=== PATIENT | male | born 1980 | race African-American/Black ===

== ENCOUNTER 2018-12-29 17:00 | Emergency (ER) | payer BC, MEDICARE ==
[~2018-12-29] VITALS: Ht 182.9 cm; Wt 89.8 kg
[2018-12-29 17:09] VITALS: BP 148/102
== END 2018-12-29 19:38 | disposition left against medical advice (07) ==
LOC: ER 17:00
DX: M25.512 Pain in left shoulder (principal); R07.89 Other chest pain; Z53.21 Procedure and treatment not carried out due to patient leaving prior to being seen by health care provider
CPT/HCPCS: 93005

== ENCOUNTER 2019-12-22 07:20 | Inpatient (IN) | payer BC, MEDICARE, OTHER ==
[2019-12-22] VITALS (15 sets, daily range): BP systolic 192–225; BP diastolic 82–129
[~2019-12-22] VITALS: Ht 185.4 cm; Wt 94.3 kg
[2019-12-22] MEDS ORDERED: ONDANSETRON HCL 4 MG/2 ML VIAL IV ONE (08:30)
[2019-12-22] MEDS ORDERED: SODIUM CHLORIDE 0.9% 1,000 ML IV ONE ×2 (08:30→09:15)
[2019-12-22] MEDS ORDERED: HYDROmorphone HCL 2 MG/ML VL IV ONE (08:30)
[2019-12-22 09:09] LABS: Basophils # (auto) 0 10 ^3/uL (0-0.2); Basophils % (auto) 0.4 % (0.0-2.0); Eosinophils # (auto) 0 10 ^3/uL (0-0.8); Hematocrit 13.2 % (41.0-53.0); Mean Corpuscular Hgb Conc. 34.4 g/dL (32.0-36.0); Monocytes # (auto) 0.4 10 ^3/uL (0-1.3); Nucleated Red Blood Cells % 0.1 %
[2019-12-22 09:11] LABS: Eosinophils % (auto) 0.5 % (0.0-7.0); Lymphocytes % (auto) 15.5 % (10.0-50.0); Mean Corpuscular Hemoglobin 32.5 pg (28.0-32.0); Mean Corpuscular Volume 94.5 fL (80.0-100.0); Monocytes % (auto) 6.3 % (0.0-12.0); Neutrophils # (auto) 4.8 10 ^3/uL (1.6-8.6); Neutrophils % (auto) 77.3 % (37.0-80.0); Platelet Count (auto) 256 10^3/uL (140-450); Red Cell Distribution Width 17.9 % (11.8-14.3); White Blood Cell 6.2 10^3/uL (4.4-10.8)
[2019-12-22 09:14] LABS: Hemoglobin 4.5 g/dL (13.5-17.5)
[2019-12-22 09:23] LABS: Calcium 8.6 mg/dL (8.5-10.1); Magnesium 2.3 mg/dL (1.6-2.6); Potassium 5.2 mmol/L (3.5-5.1)
[2019-12-22 09:38] LABS: BUN/Creatinine Ratio 5.2; Bilirubin, Total 0.6 mg/dL (0.2-1.0); Total Protein 6.4 g/dL (6.4-8.2)
[2019-12-22] MEDS ORDERED: hydrALAZINE HCL 20 MG/ML VL IV ONE (11:30)
[2019-12-22] MEDS ORDERED: LABETALOL HCL 5 MG/ML 4ML SYRINGE IV ONE (11:30)
[2019-12-22] MEDS ORDERED: ACETAMINOPHEN 500 MG TAB PO ONE (11:30)
[2019-12-22] MEDS ORDERED: MORPHINE SULF INJ 2 MG/ML SYRINGE 1ML IV PRN (12:00)
[2019-12-22] MEDS ORDERED: ACETAMINOPHEN 500 MG TAB PO PRN (12:00)
[2019-12-22] MEDS ORDERED: NITROGLYCERIN 0.4 MG SL TAB SL PRN (12:00)
[2019-12-22] MEDS: MORPHINE SULF INJ 2 MG/ML SYRINGE 1ML IV PRN ×4 (12:29→23:23)
[2019-12-22] MEDS: ONDANSETRON HCL 4 MG/2 ML VIAL IV PRN ×2 (12:30→13:09)
[2019-12-22] MEDS: HYDROcodone-ACET 5/325MG TAB PO PRN ×2 (13:30→21:24)
[2019-12-22 15:40] LABS: INR 1.06 (0.9-1.15)
[2019-12-22] MEDS ORDERED: SODIUM CHL 0.9% 1000 ML BAG XX ONE (15:45)
[2019-12-22 16:14] LABS: Hematocrit 18.1 % (41.0-53.0)
[2019-12-22 16:28] LABS: Hemoglobin 6.1 g/dL (13.5-17.5)
[2019-12-22] MEDS ORDERED: EPOETIN ALFA 10,000 UNIT/1 ML VIAL SC ONE (21:00)
[2019-12-22] MEDS ORDERED: EPOETIN ALFA 10,000 UNIT/1 ML VIAL ONE (21:13)
[2019-12-22] MEDS: PANTOPRAZOLE 40 MG/10 ML VIAL INJ IV SCH (21:24)
[2019-12-22] MEDS: hydrALAZINE HCL 25 MG TAB PO PRN (21:25)
[2019-12-22] MEDS: CARVEDILOL 3.125 MG TAB PO SCH (21:32)
[2019-12-23] MEDS: MORPHINE SULF INJ 2 MG/ML SYRINGE 1ML IV PRN ×2 (03:00→08:11)
[2019-12-23] MEDS ORDERED: hydrALAZINE HCL 20 MG/ML VL IV ONE (04:45)
[2019-12-23] MEDS: CARVEDILOL 3.125 MG TAB PO SCH (08:11)
[2019-12-23 09:13] LABS: Hemoglobin 7.2 g/dL (13.5-17.5); Mean Corpuscular Volume 90.4 fL (80.0-100.0)
[2019-12-23 09:15] LABS: Hematocrit 21.6 % (41.0-53.0); Mean Corpuscular Hemoglobin 30.3 pg (28.0-32.0); Mean Corpuscular Hgb Conc. 33.5 g/dL (32.0-36.0); Platelet Count (auto) 231 10^3/uL (140-450); Red Blood Cells 2.38 10^6/uL (4.5-5.90); White Blood Cell 6.3 10^3/uL (4.4-10.8)
[2019-12-23 09:16] LABS: Albumin 2.8 g/dL (3.4-5.0); Calcium 8.8 mg/dL (8.5-10.1); Potassium 4.9 mmol/L (3.5-5.1)
[2019-12-23 09:17] LABS: Basophils % (manual) 0 (0.0-2.0); Blast Cells 0; Metamyelocytes % 0; Myelocytes % 0; Promyelocytes % 0; Reactive Lymphocytes 0
[2019-12-23 09:20] LABS: BUN/Creatinine Ratio 3.7; Bilirubin, Total 0.7 mg/dL (0.2-1.0); Total Protein 6.4 g/dL (6.4-8.2)
[2019-12-23 09:32] LABS: Band Neutrophils % (manual) 1; Eosinophils % (manual) 1 (0-7); Lymphocytes % (manual) 17 (10.0-50.0); Monocytes % (manual) 2 (0-12)
[2019-12-23] MEDS: PANTOPRAZOLE 40 MG/10 ML VIAL INJ IV SCH ×2 (10:00→22:00)
[2019-12-23] MEDS: hydrALAZINE HCL 25 MG TAB PO PRN (10:01)
[2019-12-23] MEDS ORDERED: CARVEDILOL 12.5 MG TAB PO ONE (11:30)
[2019-12-23] MEDS: HYDROmorphone HCL 2 MG/ML VL IV PRN ×3 (12:18→20:33)
[2019-12-23] MEDS: cloNIDine HCL 0.1 MG TAB PO PRN (12:18)
[2019-12-23] MEDS: hydrALAZINE HCL 25 MG TAB PO SCH ×3 (12:23→22:50)
[2019-12-23 14:30] VITALS: BP 154/82
[2019-12-23 15:15] LABS: INR 1.07 (0.9-1.15); Partial Thromboplastin Time 27.5 sec (23.64-32.05)
[2019-12-23] MEDS ORDERED: CARV12.544 PO (15:57)
[2019-12-23] MEDS ORDERED: CLO01T PO (15:57)
[2019-12-23] MEDS ORDERED: HYDR50TA15 PO (15:57)
[2019-12-23] MEDS ORDERED: CINA30TA2 PO (15:57)
[2019-12-23] MEDS: CARVEDILOL 12.5 MG TAB PO SCH (18:03)
[2019-12-23 20:00] VITALS: BP 140/86
[2019-12-23 22:00] VITALS: BP 120/72
[2019-12-24] VITALS (8 sets, daily range): BP systolic 139–183; BP diastolic 78–100
[2019-12-24] MEDS: HYDROmorphone HCL 2 MG/ML VL IV PRN ×4 (02:37→20:14)
[2019-12-24] MEDS: hydrALAZINE HCL 25 MG TAB PO SCH ×4 (05:39→22:18)
[2019-12-24] MEDS: diphenhdrAMINE HCL 50 MG/1 ML VL IV PRN (05:40)
[2019-12-24] MEDS: cloNIDine HCL 0.1 MG TAB PO PRN ×2 (05:42→22:27)
[2019-12-24 06:21] LABS: Basophils # (auto) 0 10 ^3/uL (0-0.2); Basophils % (auto) 0.2 % (0.0-2.0); Eosinophils # (auto) 0.1 10 ^3/uL (0-0.8); Mean Corpuscular Volume 93.4 fL (80.0-100.0); Red Blood Cells 2.08 10^6/uL (4.5-5.90); White Blood Cell 6.2 10^3/uL (4.4-10.8)
[2019-12-24 06:24] LABS: Eosinophils % (auto) 0.9 % (0.0-7.0); Hematocrit 19.5 % (41.0-53.0); Lymphocytes # (auto) 1.1 10 ^3/uL (0.4-5.4); Lymphocytes % (auto) 17.4 % (10.0-50.0); Mean Corpuscular Hemoglobin 33.3 pg (28.0-32.0); Mean Corpuscular Hgb Conc. 35.7 g/dL (32.0-36.0); Monocytes # (auto) 0.4 10 ^3/uL (0-1.3); Monocytes % (auto) 7.1 % (0.0-12.0); Neutrophils # (auto) 4.6 10 ^3/uL (1.6-8.6); Neutrophils % (auto) 74.4 % (37.0-80.0); Platelet Count (auto) 182 10^3/uL (140-450); Red Cell Distribution Width 15.6 % (11.8-14.3)
[2019-12-24 06:27] LABS: Hemoglobin 6.9 g/dL (13.5-17.5)
[2019-12-24 06:36] LABS: Calcium 8.8 mg/dL (8.5-10.1); Potassium 5.1 mmol/L (3.5-5.1)
[2019-12-24 06:38] LABS: BUN/Creatinine Ratio 3.4
[2019-12-24] MEDS ORDERED: SODIUM CHL 0.9% 1000 ML BAG XX ONE (07:00)
[2019-12-24] MEDS: CARVEDILOL 12.5 MG TAB PO SCH ×2 (08:00→19:25)
[2019-12-24] MEDS: amLODIPine BESYLATE 5 MG TAB PO SCH (10:00)
[2019-12-24] MEDS: PANTOPRAZOLE 40 MG/10 ML VIAL INJ IV SCH ×2 (10:05→22:15)
[2019-12-24] MEDS ORDERED: EPOETIN ALFA 10,000 UNIT/1 ML VIAL SC ONE (21:00)
[2019-12-25] VITALS (7 sets, daily range): BP systolic 140–183; BP diastolic 77–95
[2019-12-25] MEDS: hydrALAZINE HCL 20 MG/ML VL IV PRN (00:14)
[2019-12-25] MEDS: HYDROmorphone HCL 2 MG/ML VL IV PRN ×5 (00:14→20:08)
[2019-12-25 05:17] LABS: Basophils # (auto) 0 10 ^3/uL (0-0.2); Basophils % (auto) 0.2 % (0.0-2.0); Eosinophils # (auto) 0.1 10 ^3/uL (0-0.8); Hemoglobin 7.2 g/dL (13.5-17.5); Lymphocytes # (auto) 0.9 10 ^3/uL (0.4-5.4); Monocytes # (auto) 0.5 10 ^3/uL (0-1.3); Red Cell Distribution Width 15.7 % (11.8-14.3)
[2019-12-25 05:19] LABS: Eosinophils % (auto) 1.3 % (0.0-7.0); Hematocrit 20.7 % (41.0-53.0); Lymphocytes % (auto) 16.8 % (10.0-50.0); Mean Corpuscular Hemoglobin 32.6 pg (28.0-32.0); Mean Corpuscular Hgb Conc. 34.9 g/dL (32.0-36.0); Mean Corpuscular Volume 93.5 fL (80.0-100.0); Monocytes % (auto) 8.6 % (0.0-12.0); Neutrophils # (auto) 4.1 10 ^3/uL (1.6-8.6); Neutrophils % (auto) 73.1 % (37.0-80.0); Nucleated Red Blood Cells % 0.1 %; Platelet Count (auto) 142 10^3/uL (140-450); Red Blood Cells 2.22 10^6/uL (4.5-5.90); White Blood Cell 5.6 10^3/uL (4.4-10.8)
[2019-12-25] MEDS: diphenhdrAMINE HCL 50 MG/1 ML VL IV PRN (05:32)
[2019-12-25] MEDS: hydrALAZINE HCL 25 MG TAB PO SCH ×4 (05:33→22:00)
[2019-12-25 05:34] LABS: BUN/Creatinine Ratio 3.5; Calcium 8.7 mg/dL (8.5-10.1); Potassium 4.6 mmol/L (3.5-5.1)
[2019-12-25] MEDS: amLODIPine BESYLATE 5 MG TAB PO SCH (10:06)
[2019-12-25] MEDS: CARVEDILOL 12.5 MG TAB PO SCH ×2 (10:07→17:44)
[2019-12-25] MEDS: PANTOPRAZOLE 40 MG/10 ML VIAL INJ IV SCH ×2 (10:08→21:58)
[2019-12-25] MEDS ORDERED: LACTULOSE 20Gm/30ML SOLN PO PRN (11:30)
[2019-12-25 14:31] LABS: Hematocrit 21.5 % (41.0-53.0); Hemoglobin 7.6 g/dL (13.5-17.5)
[2019-12-26] MEDS: HYDROmorphone HCL 2 MG/ML VL IV PRN ×5 (03:03→22:15)
[2019-12-26] MEDS: diphenhdrAMINE HCL 50 MG/1 ML VL IV PRN ×5 (03:17→22:15)
[2019-12-26 05:48] VITALS: BP 174/106
[2019-12-26] MEDS: cloNIDine HCL 0.1 MG TAB PO PRN ×2 (05:52→21:41)
[2019-12-26] MEDS: hydrALAZINE HCL 25 MG TAB PO SCH ×4 (05:52→21:41)
[2019-12-26] MEDS: CARVEDILOL 12.5 MG TAB PO SCH ×2 (08:54→17:20)
[2019-12-26] MEDS: amLODIPine BESYLATE 5 MG TAB PO SCH (08:55)
[2019-12-26] MEDS: PANTOPRAZOLE 40 MG/10 ML VIAL INJ IV SCH ×2 (08:55→22:12)
[2019-12-26 09:00] VITALS: BP_SYST 153
[2019-12-26 11:35] LABS: BUN/Creatinine Ratio 4.1; Calcium 8.9 mg/dL (8.5-10.1); Potassium 4.4 mmol/L (3.5-5.1)
[2019-12-26 11:39] LABS: Basophils # (auto) 0 10 ^3/uL (0-0.2); Eosinophils # (auto) 0.1 10 ^3/uL (0-0.8); Monocytes # (auto) 0.4 10 ^3/uL (0-1.3); Nucleated Red Blood Cells % 0.1 %; White Blood Cell 5.2 10^3/uL (4.4-10.8)
[2019-12-26 11:43] LABS: Basophils % (auto) 0.1 % (0.0-2.0); Eosinophils % (auto) 1.6 % (0.0-7.0); Hematocrit 20.8 % (41.0-53.0); Hemoglobin 7.2 g/dL (13.5-17.5); Lymphocytes % (auto) 19.6 % (10.0-50.0); Mean Corpuscular Hemoglobin 31.9 pg (28.0-32.0); Mean Corpuscular Hgb Conc. 34.8 g/dL (32.0-36.0); Mean Corpuscular Volume 91.5 fL (80.0-100.0); Monocytes % (auto) 7.9 % (0.0-12.0); Neutrophils # (auto) 3.7 10 ^3/uL (1.6-8.6); Neutrophils % (auto) 70.8 % (37.0-80.0); Platelet Count (auto) 135 10^3/uL (140-450); Red Blood Cells 2.27 10^6/uL (4.5-5.90); Red Cell Distribution Width 15.5 % (11.8-14.3)
[2019-12-26 13:00] VITALS: BP 159/91
[2019-12-26] MEDS: hydrALAZINE HCL 20 MG/ML VL IV PRN ×2 (14:40→23:14)
[2019-12-26 17:00] VITALS: BP 154/79
[2019-12-26 22:00] VITALS: BP 160/90
[2019-12-27] VITALS (7 sets, daily range): BP systolic 151–166; BP diastolic 75–101
[2019-12-27] MEDS: HYDROmorphone HCL 2 MG/ML VL IV PRN ×3 (03:56→14:01)
[2019-12-27] MEDS: diphenhdrAMINE HCL 50 MG/1 ML VL IV PRN ×3 (03:59→14:26)
[2019-12-27 05:01] LABS: Basophils # (auto) 0 10 ^3/uL (0-0.2); Basophils % (auto) 0.4 % (0.0-2.0); Eosinophils # (auto) 0.1 10 ^3/uL (0-0.8); Eosinophils % (auto) 2.2 % (0.0-7.0); Hemoglobin 7.2 g/dL (13.5-17.5); Lymphocytes # (auto) 0.8 10 ^3/uL (0.4-5.4); Lymphocytes % (auto) 15.6 % (10.0-50.0); Mean Corpuscular Hemoglobin 33.7 pg (28.0-32.0); Mean Corpuscular Hgb Conc. 35.8 g/dL (32.0-36.0); Mean Corpuscular Volume 94.1 fL (80.0-100.0); Monocytes # (auto) 0.4 10 ^3/uL (0-1.3); Monocytes % (auto) 9.3 % (0.0-12.0); Neutrophils # (auto) 3.5 10 ^3/uL (1.6-8.6); Neutrophils % (auto) 72.5 % (37.0-80.0); Platelet Count (auto) 159 10^3/uL (140-450); Red Blood Cells 2.13 10^6/uL (4.5-5.90); Red Cell Distribution Width 15.3 % (11.8-14.3); White Blood Cell 4.8 10^3/uL (4.4-10.8)
[2019-12-27] MEDS: hydrALAZINE HCL 25 MG TAB PO SCH ×2 (05:25→12:06)
[2019-12-27 05:35] LABS: BUN/Creatinine Ratio 4.1; Calcium 8.8 mg/dL (8.5-10.1); Potassium 5.5 mmol/L (3.5-5.1)
[2019-12-27] MEDS ORDERED: SODIUM CHL 0.9% 1000 ML BAG XX ONE (07:00)
[2019-12-27] MEDS: CARVEDILOL 12.5 MG TAB PO SCH (07:52)
[2019-12-27] MEDS ORDERED: SODIUM CHLORIDE LOCK 10 ML ONE (08:33)
[2019-12-27] MEDS ORDERED: LIDOCAINE VISCOUS 2% 15ML UD ONE (08:33)
[2019-12-27] MEDS ORDERED: diphenhdrAMINE HCL 50 MG/1 ML VL ONE (08:34)
[2019-12-27] MEDS: hydrALAZINE HCL 20 MG/ML VL IV PRN (08:45)
[2019-12-27 09:52] LABS: INR 1.06 (0.9-1.15); Partial Thromboplastin Time 37.8 sec (23.64-32.05)
[2019-12-27] MEDS: PANTOPRAZOLE 40 MG/10 ML VIAL INJ IV SCH (10:00)
[2019-12-27] MEDS: amLODIPine BESYLATE 5 MG TAB PO SCH (10:00)
[2019-12-27] MEDS ORDERED: CARVEDILOL 12.5 MG TAB PO ONE (10:30)
[2019-12-27] MEDS: MIDAZOLAM HCL 5 MG/ML-1ML VIAL ONE ×2 (12:24→12:27)
[2019-12-27] MEDS: fentaNYL CITRATE 100 MCG/2 ML VL ONE ×2 (12:24→12:27)
[2019-12-27] MEDS ORDERED: CARVEDILOL 12.5 MG TAB PO SCH (18:00)
[2019-12-27] MEDS ORDERED: EPOETIN ALFA 10,000 UNIT/1 ML VIAL SC ONE (21:00)
[2019-12-27] MEDS ORDERED: PANTOPRAZOLE 40 MG TAB PO SCH (22:00)
== END 2019-12-27 16:30 | disposition home or self-care (01) | DRG 377 ==
LOC: EDBD 07:20 → ER 07:20 → OVERFLOW 07:21 → TELE-CENTR 12-23 14:10
PROVIDERS: ADMIT Nurse Practitioner Acute Care; ATTEND Internal Medicine Geriatric Medicine
PROC: 30233N1 Transfusion of Nonautologous Red Blood Cells into Peripheral Vein, Percutaneous Approach (ICD-10-PCS; principal; 2019-12-22)
PROC: 5A1D70Z Performance of Urinary Filtration, Intermittent, Less than 6 Hours Per Day (ICD-10-PCS; 2019-12-22)
PROC: 0PSHXZZ Reposition Right Radius, External Approach (ICD-10-PCS; 2019-12-23)
PROC: 5A1D70Z Performance of Urinary Filtration, Intermittent, Less than 6 Hours Per Day (ICD-10-PCS; 2019-12-24)
PROC: 0DJ08ZZ Inspection of Upper Intestinal Tract, Via Natural or Artificial Opening Endoscopic (ICD-10-PCS; 2019-12-27)
DX: K29.71 Gastritis, unspecified, with bleeding (principal); N18.6 End stage renal disease; S52.501A Unspecified fracture of the lower end of right radius, initial encounter for closed fracture; I16.9 Hypertensive crisis, unspecified; E44.0 Moderate protein-calorie malnutrition; N25.81 Secondary hyperparathyroidism of renal origin; D62 Acute posthemorrhagic anemia; I12.0 Hypertensive chronic kidney disease with stage 5 chronic kidney disease or end stage renal disease; S52.201A Unspecified fracture of shaft of right ulna, initial encounter for closed fracture; W01.0XXA Fall on same level from slipping, tripping and stumbling without subsequent striking against object, initial encounter; E87.5 Hyperkalemia; E66.9 Obesity, unspecified; D63.1 Anemia in chronic kidney disease; I16.0 Hypertensive urgency; Z87.11 Personal history of peptic ulcer disease; Y93.89 Activity, other specified; Y92.89 Other specified places as the place of occurrence of the external cause; Y99.8 Other external cause status; Z79.899 Other long term (current) drug therapy; Z68.27 Body mass index [BMI] 27.0-27.9, adult; Z99.2 Dependence on renal dialysis
CPT/HCPCS: 36415; 36430; 43235; 71045; 73080; 73100; 80048; 80053; 83735; 85007; 85014; 85018; 85025; 85027; 85610; 85730; 86850; 86900; 86901; 86920; 90935; 93971; 96361; 96374; 96375; C9113; G0378; J0885; J2250; J2405; J3490

== ENCOUNTER 2020-07-10 07:43 | Inpatient (IN) | payer OTHER ==
[~2020-07-10] VITALS: Ht 182.9 cm; Wt 95.0 kg
[~2020-07-10 07:43] MED LIST: CARV12.544 PO; CINA30TA2 PO; CLO01T PO; HYDR50TA15 PO
[2020-07-10 08:30] LABS: Basophils # (auto) 0 10 ^3/uL (0-0.2); Basophils % (auto) 0.4 % (0.0-2.0); Eosinophils # (auto) 0 10 ^3/uL (0-0.8); Lymphocytes # (auto) 0.4 10 ^3/uL (0.4-5.4); Lymphocytes % (auto) 15.2 % (10.0-50.0); Monocytes # (auto) 0.2 10 ^3/uL (0-1.3); White Blood Cell 2.8 10^3/uL (4.4-10.8)
[2020-07-10 08:32] LABS: Eosinophils % (auto) 0.4 % (0.0-7.0); Hematocrit 15.8 % (41.0-53.0); Mean Corpuscular Hgb Conc. 36.2 g/dL (32.0-36.0); Monocytes % (auto) 7.1 % (0.0-12.0); Neutrophils # (auto) 2.1 10 ^3/uL (1.6-8.6); Neutrophils % (auto) 76.9 % (37.0-80.0); Platelet Count (auto) 129 10^3/uL (140-450); Red Blood Cells 1.68 10^6/uL (4.5-5.90); Red Cell Distribution Width 16.7 % (11.8-14.3)
[2020-07-10 08:47] LABS: Albumin 2.8 g/dL (3.4-5.0); Calcium 7.7 mg/dL (8.5-10.1); Potassium 4.2 mmol/L (3.5-5.1)
[2020-07-10 08:49] LABS: Hemoglobin 5.7 g/dL (13.5-17.5)
[2020-07-10 09:03] LABS: BUN/Creatinine Ratio 3.8; Bilirubin, Total 0.7 mg/dL (0.2-1.0); Total Protein 6.7 g/dL (6.4-8.2)
[2020-07-10] MEDS ORDERED: DOXYCYCLINE 100MG/250ML 250 ML IV ONE (10:00)
[2020-07-10] MEDS ORDERED: DexAMETHasone SOD PHOS 10MG/1ML VIAL INJ IV ONE ×2 (10:00→11:30)
[2020-07-10] MEDS ORDERED: HYDROcodone-ACET 5/325MG TAB PO PRN (11:15)
[2020-07-10] MEDS ORDERED: MORPHINE SULF INJ 2 MG/ML SYRINGE 1ML IV PRN ×2 (11:15)
[2020-07-10] MEDS ORDERED: NITROGLYCERIN 0.4 MG SL TAB SL PRN (11:15)
[2020-07-10] MEDS ORDERED: ONDANSETRON HCL 4 MG/2 ML VIAL IV PRN (11:15)
[2020-07-10] MEDS ORDERED: ACETAMINOPHEN 500 MG TAB PO PRN (11:15)
[2020-07-10] MEDS ORDERED: ASCORBIC ACID 1,000 MG TAB PO ONE (11:30)
[2020-07-10] MEDS ORDERED: DOXYCYCLINE 100 MG TAB/CAP PO ONE (11:30)
[2020-07-10] MEDS ORDERED: CHOLECALCIFEROL (VITD3) 2,000 UNIT CAP PO ONE (11:30)
[2020-07-10] MEDS ORDERED: PANTOPRAZOLE 40 MG TAB PO ONE (11:30)
[2020-07-10] MEDS ORDERED: ZINC SULFATE 220mg CAP or TAB PO ONE (11:30)
[2020-07-10] MEDS ORDERED: CARVEDILOL 12.5 MG TAB PO ONE (11:30)
[2020-07-10] MEDS ORDERED: LORA-622 PO (12:07)
[2020-07-10] MEDS ORDERED: NIFE1TAB31 PO (12:07)
[2020-07-10] MEDS ORDERED: MIN25T PO (12:07)
[2020-07-10] MEDS ORDERED: CARV25TA55 PO (12:24)
[2020-07-10 12:34] LABS: CRP High Sensitivity 12.5 mg/dL (< 0.3)
[2020-07-10] MEDS ORDERED: diphenhdrAMINE HCL 50 MG/1 ML VL IV ONE (15:30)
[2020-07-10 15:44] VITALS: BP 136/89
[2020-07-10 16:27] VITALS: BP 142/92
[2020-07-10] MEDS ORDERED: BUMETANIDE 2.5mg/10ml (0.25 mg/ml) INJ IV ONE (17:30)
[2020-07-10 20:10] VITALS: BP 136/81
[2020-07-10 21:23] VITALS: BP 136/81
[2020-07-10] MEDS: CARVEDILOL 12.5 MG TAB PO SCH (21:25)
[2020-07-10] MEDS: DOXYCYCLINE 100 MG TAB/CAP PO SCH (21:26)
[2020-07-10] MEDS: CINACALCET HYDROCHLORIDE 30 MG TAB PO SCH (21:30)
--- NOTE | 2020-07-10 23:28 | NUR ---
Telemetry admit from [facility]SMANK[facility] admitted to Telemetry unit. Patient oriented to Betty Smith RN primary RN, unit, room, bed, and unit policies regarding patient care and visiting hours. Patient now on continuous telemetry monitoring, tele box #6. Patient placed on bedside oxygen at 3 liters, weighed by bedscale and encouraged to call if they need something. All questions and concerns addressed, patient verbalized understanding. Bed is in lowest locked position with bed rails up x2 and call light is within reach of the patient. Addendum: 07/10/20 at 2330 by Betty Smith RN RN Time meant for 2005
[2020-07-11 05:00] VITALS: BP 139/87
--- NOTE | 2020-07-11 06:59 | NUR ---
Respiratory note: POX CHECK, PT WAS AWAKE AND ALERT, NO RESP DISTRESS NOTED. HR 89, RR 16, SPO2 98% ON ROOM AIR.
--- NOTE | 2020-07-11 07:30 | NUR ---
Opening Shift Note Assumed care of patient, awake and alert. No S/S of distress/SOB or pain. Instructed on POC and to call for assist PRN. Instructed on IS use and provided patient with one at bedside he verbalized understanding and returned demo. Teaching regarding constant proning given at this time as well he verbalized understanding. Pt currently on room air and sats 98%, denies sob on exertion. Patient states anuria for "10 yrs" and unable to collect urine specimen as ordered. Cup at bedside in case. Will continue to monitor for changes Q1hr and PRN.
[2020-07-11 08:41] VITALS: BP 124/82
[2020-07-11] MEDS: DexAMETHasone SOD PHOS 10MG/1ML VIAL INJ IV SCH (10:46)
[2020-07-11] MEDS: DOXYCYCLINE 100 MG TAB/CAP PO SCH ×2 (10:46→22:01)
[2020-07-11] MEDS: PANTOPRAZOLE 40 MG TAB PO SCH (10:46)
[2020-07-11] MEDS: ZINC SULFATE 220mg CAP or TAB PO SCH (10:46)
[2020-07-11] MEDS: CHOLECALCIFEROL (VITD3) 2,000 UNIT CAP PO SCH (10:47)
[2020-07-11] MEDS: ASCORBIC ACID 1,000 MG TAB PO SCH (10:47)
[2020-07-11] MEDS: CARVEDILOL 12.5 MG TAB PO SCH ×2 (10:48→22:01)
[2020-07-11 11:06] LABS: Albumin 2.6 g/dL (3.4-5.0); Calcium 6.4 mg/dL (8.5-10.1); Potassium 3.4 mmol/L (3.5-5.1)
[2020-07-11 11:11] LABS: BUN/Creatinine Ratio 3.9; Bilirubin, Total 0.5 mg/dL (0.2-1.0); Total Protein 6.4 g/dL (6.4-8.2)
[2020-07-11 11:13] LABS: Basophils # (auto) 0 10 ^3/uL (0-0.2); Basophils % (auto) 0.1 % (0.0-2.0); Eosinophils # (auto) 0 10 ^3/uL (0-0.8); Hematocrit 15.8 % (41.0-53.0); Lymphocytes # (auto) 0.4 10 ^3/uL (0.4-5.4); Lymphocytes % (auto) 16.8 % (10.0-50.0); Mean Corpuscular Hemoglobin 42.5 pg (28.0-32.0); Mean Corpuscular Volume 102.7 fL (80.0-100.0); Monocytes # (auto) 0.2 10 ^3/uL (0-1.3); Monocytes % (auto) 7.9 % (0.0-12.0); Neutrophils # (auto) 1.9 10 ^3/uL (1.6-8.6); Neutrophils % (auto) 75.2 % (37.0-80.0); Nucleated Red Blood Cells % 0.1 %; Platelet Count (auto) 132 10^3/uL (140-450); Red Blood Cells 1.54 10^6/uL (4.5-5.90); Red Cell Distribution Width 15.1 % (11.8-14.3); White Blood Cell 2.5 10^3/uL (4.4-10.8)
[2020-07-11 11:19] LABS: Mean Corpuscular Hgb Conc. 41.3 g/dL (32.0-36.0)
[2020-07-11 11:21] LABS: Hemoglobin 6.5 g/dL (13.5-17.5)
--- NOTE | 2020-07-11 11:34 | NUR ---
Critical hgb 6.5 per Clarita in lab. MD Rowley paged to notify left voicemail with answering service. Patient denies any active bleeding, no s/s of distress or sob noted. Patient on room air sat 98%. Cont care
--- NOTE | 2020-07-11 12:01 | NUR ---
MD Rowley at bedside aware of patient's status including critical hgb. states he will speak to Trauma Surgeon regarding possible unit of blood today or wait until tomorrow to transfuse with dialysis as pt is asymptomatic, no s/s of active bleeding noted, no sob or distress noted. Patient on room air sat 99%. No new orders received at this time. Cont to monitor
[2020-07-11 13:02] VITALS: BP 134/88
[2020-07-11 17:00] VITALS: BP 141/90
--- NOTE | 2020-07-11 19:00 | NUR ---
Patient care endorsed endorsed care to Milana rn. Patient sitting comfortably in bed on room air no acute distress or sob noted. Call light within reach
--- NOTE | 2020-07-11 19:30 | NUR ---
OPENING NOTE Received report from day shift RN. Patient is A&O X's 4 with no s/s of distress. Patient is on RA and continuous pulse ox. O2 is around 95% at this time. Educated patient on POC and to use call light when in need of any assistance. Patient verbalized understanding. Patient to have dialysis tomorrow. Fistula to left forearm + bruit/palpation. Bed is in lowest/locked position with side rails up X's 2 and call light is within reach of patient. Will continue care.
[2020-07-11] MEDS: CINACALCET HYDROCHLORIDE 30 MG TAB PO SCH (22:00)
[2020-07-11 22:07] VITALS: BP 144/90
[2020-07-12] VITALS (8 sets, daily range): BP systolic 147–169; BP diastolic 91–107
[2020-07-12] MEDS ORDERED: diphenhdrAMINE HCL 50 MG/1 ML VL IV ONE ×2 (06:30→06:45)
--- NOTE | 2020-07-12 06:31 | NUR ---
new orders for benadryl before patient gets dialysis. read back and verified. Will continue care.
[2020-07-12] MEDS ORDERED: SODIUM CHL 0.9% 1000 ML BAG XX ONE (07:00)
--- NOTE | 2020-07-12 07:04 | NUR ---
ASSOCIATE PROFESSOR OF MANAGEMENT AT BEDSIDE.
[2020-07-12 07:15] LABS: Basophils # (auto) 0 10 ^3/uL (0-0.2); Eosinophils # (auto) 0 10 ^3/uL (0-0.8); Lymphocytes # (auto) 0.6 10 ^3/uL (0.4-5.4); Monocytes # (auto) 0.3 10 ^3/uL (0-1.3); Neutrophils # (auto) 2.7 10 ^3/uL (1.6-8.6); White Blood Cell 3.6 10^3/uL (4.4-10.8)
[2020-07-12 07:19] LABS: Basophils % (auto) 0.3 % (0.0-2.0); Eosinophils % (auto) 0.1 % (0.0-7.0); Hematocrit 12.1 % (41.0-53.0); Lymphocytes % (auto) 17.7 % (10.0-50.0); Mean Corpuscular Hemoglobin 54.6 pg (28.0-32.0); Neutrophils % (auto) 74.9 % (37.0-80.0); Platelet Count (auto) 156 10^3/uL (140-450); Red Blood Cells 1.12 10^6/uL (4.5-5.90); Red Cell Distribution Width 15.2 % (11.8-14.3)
[2020-07-12 07:29] LABS: BUN/Creatinine Ratio 4.3; Calcium 6.2 mg/dL (8.5-10.1); Potassium 3.4 mmol/L (3.5-5.1)
[2020-07-12 07:36] LABS: Hemoglobin 6.1 g/dL (13.5-17.5); Mean Corpuscular Hgb Conc. 50.5 g/dL (32.0-36.0)
--- NOTE | 2020-07-12 07:36 | NUR ---
Critical hbg 6.1 per Clarita in the lab. Paged MD Rowley to notify, voicemail left on answering machine. Patient denies any bleeding, no s/s of active bleeding noted.
--- NOTE | 2020-07-12 07:43 | NUR ---
Spoke to Dr. Rowley regarding critical hgb. New orders received to transfuse 1 unit PRBCs with dialysis if blood is ready on time, if not transfuse 1 unit after dialysis. This rn called blood bank and they state blood should be ready in about 20 mins?. Awaiting blood for transfusion at this time.
--- NOTE | 2020-07-12 08:00 | NUR ---
Respiratory note: PT IS RESTING COMFORTABLY. NO RESPIRATORY DISTRESS NOTED. SPO2 98%, HR 70, RR 18, BS CLEAR/DIMINISHED BILATERALLY. NO FURTHER RESPIRATORY INTERVENTIONS INDICATED. WILL CONTINUE TO MONITOR PT. CHARTING COMPLETE FROM OUTSIDE OF PT ROOM PER COVID-19 PRECAUTIONS/PROTOCOL.
--- NOTE | 2020-07-12 08:21 | NUR ---
PRBC started with dialysis at this time by Sherine murphy. Verified at bedside by this rn and Gray murphy cosigned. Sherine murphy to monitor and obtain VS at bedside. Cont care
--- NOTE | 2020-07-12 08:32 | NUR ---
Spoke to Dr Rowley, orders received to transfuse one more unit prbc with dialysis at this time, orders put in. This rn called Clarita in blood bank and she states blood will be ready in 20 minutes. I notified Sherine tax intern and she will transfuse second unit as soon as available.
--- NOTE | 2020-07-12 09:19 | NUR ---
Second unit PRBC started by Sherine popcorn candy maker at this time. Verified at bedside with jones rn and Gray rn. No acute distress or sob noted at this time cont to monitor.
--- NOTE | 2020-07-12 09:40 | NUR ---
Second unit pRBC ended at this time by recruitment intern Sherine. Dialysis ended at this time and 2L taken out. Will cont to monitor
[2020-07-12] MEDS: CARVEDILOL 12.5 MG TAB PO SCH ×2 (10:06→21:53)
[2020-07-12] MEDS: DexAMETHasone SOD PHOS 10MG/1ML VIAL INJ IV SCH (10:28)
[2020-07-12] MEDS: ASCORBIC ACID 1,000 MG TAB PO SCH (10:28)
[2020-07-12] MEDS: PANTOPRAZOLE 40 MG TAB PO SCH (10:28)
[2020-07-12] MEDS: CHOLECALCIFEROL (VITD3) 2,000 UNIT CAP PO SCH (10:28)
[2020-07-12] MEDS: ZINC SULFATE 220mg CAP or TAB PO SCH (10:28)
[2020-07-12] MEDS: DOXYCYCLINE 100 MG TAB/CAP PO SCH ×2 (10:28→21:53)
[2020-07-12] MEDS ORDERED: CALCIUM GLUC 4.65meq/50ml D5AE 50 ML IV ONE (16:30)
--- NOTE | 2020-07-12 18:51 | NUR ---
Awaiting on Calcium gluc still, tubing system not working and medication has not been received yet. Per Elsy in pharmacy "someone will come up to deliver it".
--- NOTE | 2020-07-12 19:00 | NUR ---
Patient care endorsed endorsed care to Hernan rn, Pharmacist delivered Calcium gluc and Hernan to administer med. No acute distress or sob noted, call light within reach.
--- NOTE | 2020-07-12 19:30 | NUR ---
Opening Shift Note Assumed care of patient, awake and alert. No S/S of distress/SOB or pain. Instructed on POC and to call for assist PRN, will continue to monitor for changes Q1hr and PRN.
[2020-07-12] MEDS ORDERED: EPOETIN ALFA 10,000 UNIT/1 ML VIAL SC ONE (21:00)
[2020-07-12] MEDS: CINACALCET HYDROCHLORIDE 30 MG TAB PO SCH (21:53)
[2020-07-13 09:00] VITALS: BP 154/105
[2020-07-13] MEDS: DexAMETHasone SOD PHOS 10MG/1ML VIAL INJ IV SCH (09:54)
[2020-07-13] MEDS: ZINC SULFATE 220mg CAP or TAB PO SCH (09:54)
[2020-07-13] MEDS: DOXYCYCLINE 100 MG TAB/CAP PO SCH ×2 (09:55→21:36)
[2020-07-13] MEDS: ASCORBIC ACID 1,000 MG TAB PO SCH (09:55)
[2020-07-13] MEDS: PANTOPRAZOLE 40 MG TAB PO SCH (09:55)
[2020-07-13] MEDS: CHOLECALCIFEROL (VITD3) 2,000 UNIT CAP PO SCH (09:55)
[2020-07-13] MEDS: CARVEDILOL 12.5 MG TAB PO SCH ×2 (09:56→21:36)
[2020-07-13 09:57] LABS: BUN/Creatinine Ratio 4.2; Potassium 3.3 mmol/L (3.5-5.1)
[2020-07-13 10:17] LABS: Basophils # (auto) 0 10 ^3/uL (0-0.2); Basophils % (auto) 0.3 % (0.0-2.0); Eosinophils # (auto) 0 10 ^3/uL (0-0.8); Eosinophils % (auto) 0.1 % (0.0-7.0); Hematocrit 23.8 % (41.0-53.0); Lymphocytes % (auto) 23.7 % (10.0-50.0); Mean Corpuscular Hemoglobin 28.2 pg (28.0-32.0); Mean Corpuscular Hgb Conc. 33.4 g/dL (32.0-36.0); Mean Corpuscular Volume 84.3 fL (80.0-100.0); Monocytes # (auto) 0.3 10 ^3/uL (0-1.3); Neutrophils # (auto) 2.8 10 ^3/uL (1.6-8.6); Neutrophils % (auto) 67.9 % (37.0-80.0); Platelet Count (auto) 185 10^3/uL (140-450); Red Blood Cells 2.83 10^6/uL (4.5-5.90); Red Cell Distribution Width 15.2 % (11.8-14.3); White Blood Cell 4.2 10^3/uL (4.4-10.8)
--- NOTE | 2020-07-13 11:42 | NUR ---
Patient states he does not want to go home today, he states he wants to have dialysis here tomorrow and does not want to be dc home today. This rn paged Dr Rowley, awaiting call back.
[2020-07-13 12:55] VITALS: BP 155/93
--- NOTE | 2020-07-13 13:00 | NUR ---
Nutrition Assessment Notes Please refer to link for full assessment notes. Est Energy needs: 7238-4101 kcals (23-25 kcal/kgBW) d/t pt with ESRD on HD Est Protein needs: 108-144 gms/day (1.1-1.2 gm/kgBW) d/t pt with ESRD on HD Will continue to monitor and reassess prn. Addendum: 07/13/20 at [address] Amended: Links added.
--- NOTE | 2020-07-13 13:17 | NUR ---
Covid swab walked to lab, awaiting result for discharge.
--- NOTE | 2020-07-13 15:22 | NUR ---
Spoke to MD Rowley, new orders received to hold dc for today if in house covid 19 result is positive and patient can have dialysis tomorrow as ordered. Awaiting result at this time.
[2020-07-13 17:00] VITALS: BP 155/96
--- NOTE | 2020-07-13 17:01 | NUR ---
Patient in house Covid result is positive. D/C held as ordered by MD Rowley for today. No acute distress or sob noted. Call light within reach
--- NOTE | 2020-07-13 19:04 | NUR ---
Patient care endorsed endorsed care to Hernan rn. Patient sitting up in bed no acute distress or sob noted. Patient on room air sat 97%. Call light within reach
[2020-07-13] MEDS: CINACALCET HYDROCHLORIDE 30 MG TAB PO SCH (21:36)
[2020-07-13 22:00] VITALS: BP 155/99
[2020-07-14 05:00] VITALS: BP 158/103
[2020-07-14] MEDS: cloNIDine HCL 0.1 MG TAB PO PRN ×3 (05:37→19:53)
[2020-07-14] MEDS ORDERED: SODIUM CHL 0.9% 1000 ML BAG XX ONE (07:00)
[2020-07-14 08:25] VITALS: BP 146/95
[2020-07-14 09:00] VITALS: BP 146/95
[2020-07-14] MEDS: ASCORBIC ACID 1,000 MG TAB PO SCH (09:46)
[2020-07-14] MEDS: CHOLECALCIFEROL (VITD3) 2,000 UNIT CAP PO SCH (09:47)
[2020-07-14] MEDS: DOXYCYCLINE 100 MG TAB/CAP PO SCH ×2 (09:47→20:57)
[2020-07-14] MEDS: ZINC SULFATE 220mg CAP or TAB PO SCH (09:47)
[2020-07-14] MEDS: DexAMETHasone SOD PHOS 10MG/1ML VIAL INJ IV SCH (09:48)
[2020-07-14] MEDS: PANTOPRAZOLE 40 MG TAB PO SCH (09:50)
[2020-07-14] MEDS: CARVEDILOL 12.5 MG TAB PO SCH (10:00)
[2020-07-14 10:28] LABS: Basophils # (auto) 0 10 ^3/uL (0-0.2); Basophils % (auto) 0.2 % (0.0-2.0); Eosinophils # (auto) 0 10 ^3/uL (0-0.8); Eosinophils % (auto) 0.3 % (0.0-7.0); Hematocrit 22.9 % (41.0-53.0); Hemoglobin 7.7 g/dL (13.5-17.5); Lymphocytes # (auto) 1.3 10 ^3/uL (0.4-5.4); Mean Corpuscular Hemoglobin 28.5 pg (28.0-32.0); Mean Corpuscular Hgb Conc. 33.5 g/dL (32.0-36.0); Mean Corpuscular Volume 85.3 fL (80.0-100.0); Monocytes # (auto) 0.4 10 ^3/uL (0-1.3); Monocytes % (auto) 9.6 % (0.0-12.0); Neutrophils # (auto) 2.4 10 ^3/uL (1.6-8.6); Neutrophils % (auto) 58.9 % (37.0-80.0); Platelet Count (auto) 185 10^3/uL (140-450); Red Blood Cells 2.69 10^6/uL (4.5-5.90); Red Cell Distribution Width 15.7 % (11.8-14.3); White Blood Cell 4.1 10^3/uL (4.4-10.8)
--- NOTE | 2020-07-14 10:55 | NUR ---
MD BROCK AT BEDSIDE. UPDATED MD ON PATIENT'S STATUS INCLUDING HEMOGLOBIN LEVEL. MD IS AWARE AND WANTS PATIENT TO BE DISCHARGED TODAY AFTER DIALYSIS. WILL FOLLOW THROUGH WITH ORDERS.
--- NOTE | 2020-07-14 12:13 | NUR ---
Assessment Patient is a 39-year-old male who is alert and oriented. Prior to admission patient lived with family and functioned independently. Per patient he can care for his own ADLs. Per patient he does no use any medical equipment now. Per patient he feels safe returning home. Per patient he will return home to her prior living arrangements post discharge and family will transport him home. Patient primary doctor Michelle. Informed patient to follow up with primary doctor after discharge. Informed patient he has the right to participate in all discharge planning. Patient verbalized understanding and agreed to discharge plan. Addendum: 07/14/20 at 1215 by RALPH FU Amended: Links added.
[2020-07-14 12:43] VITALS: BP 156/99
--- NOTE | 2020-07-14 16:13 | NUR ---
SPOKE WITH DR. BROCK. INFORMED MD PATIENT IS REQUESTING BENADRYL FOR DIALYSIS. ORDERED BENADRYL.
[2020-07-14] MEDS ORDERED: diphenhdrAMINE HCL 50 MG/1 ML VL IV ONE (16:15)
[2020-07-14 16:35] VITALS: BP 144/99
--- NOTE | 2020-07-14 19:02 | NUR ---
CLOSING SHIFT NOTE PATIENT HAS NO S/S OF DISTRESS/SOB OR PAIN AT THIS TIME. WILL ENDORSE CARE TO FABRIC SEPARATOR OPERATOR RN.
--- NOTE | 2020-07-14 19:15 | NUR ---
Opening Shift Note Assumed care of patient, awake and alert x4. Patient denies pain or shortness of breath at this time. No signs/symptoms of distress noted or verbalized at this time. Instructed on plan of care and encouraged patient to call for assistance as needed. Bed is locked in lowest position, side rails x 2 are up, call light is within reach, and bed alarm is on.
--- NOTE | 2020-07-14 19:20 | NUR ---
Dialysis Completed Dialysis completed at this time. 3L taken out. BP 156/107. No sign/symptoms of distress noted or verbalized at this time.
[2020-07-14 21:00] VITALS: BP 149/99
[2020-07-14] MEDS ORDERED: EPOETIN ALFA 4,000 UNIT/ML VL SC ONE (21:00)
--- NOTE | 2020-07-14 21:25 | NUR ---
Discharge Discharge instructions given as ordered. Encourage to follow up with primary care provider as instructed. All questions and concerns addressed. Patient verbalized understanding. Medication reconciliation form completed and copy given to patient. Home medications held in the covid unit medication room returned to patient. Prescription given to patient and instructed patient to cone picker medications from [facility] tomorrow morning due to [facility] being closed at this time, patient verbalized understanding. IV removed with catheter intact, pressure dressing applied. Telemetry unit returned to ICU. Patient taken to vehicle via wheelchair with all personal belongings, accompanied by staff. No distress noted at time of departure.
== END 2020-07-14 21:25 | disposition home or self-care (01) | DRG 177 ==
LOC: ER 07:43 → TELE 07:44 → TELE-EAST 20:06
PROVIDERS: ADMIT Nurse Practitioner Acute Care; ATTEND Internal Medicine Geriatric Medicine
PROC: 30233N1 Transfusion of Nonautologous Red Blood Cells into Peripheral Vein, Percutaneous Approach (ICD-10-PCS; principal; 2020-07-10)
DX: U07.1 COVID-19 (principal); J12.89 Other viral pneumonia; N18.6 End stage renal disease; J96.01 Acute respiratory failure with hypoxia; E87.1 Hypo-osmolality and hyponatremia; N25.81 Secondary hyperparathyroidism of renal origin; J98.11 Atelectasis; E44.0 Moderate protein-calorie malnutrition; I13.2 Hypertensive heart and chronic kidney disease with heart failure and with stage 5 chronic kidney disease, or end stage renal disease; D63.1 Anemia in chronic kidney disease; I50.9 Heart failure, unspecified; E83.51 Hypocalcemia; D72.819 Decreased white blood cell count, unspecified; E87.6 Hypokalemia; K29.70 Gastritis, unspecified, without bleeding; F12.90 Cannabis use, unspecified, uncomplicated; Z82.49 Family history of ischemic heart disease and other diseases of the circulatory system; Z99.2 Dependence on renal dialysis; Z91.15 Patient's noncompliance with renal dialysis; Z83.3 Family history of diabetes mellitus
CPT/HCPCS: 36415; 71045; 80048; 80053; 82728; 83605; 83615; 83735; 84443; 85025; 85379; 86141; 86850; 86900; 86901; 86920; 87040; 87804; 90935; 93005; 99291; G0378; J0610; J0885; J1100; J1642

== ENCOUNTER 2020-12-12 18:32 | Emergency (ER) | payer OTHER ==
[~2020-12-12] VITALS: Ht 182.9 cm; Wt 90.7 kg
[~2020-12-12 18:32] MED LIST changes: -CARV12.544 PO; +CARV25TA55 PO; -CINA30TA2 PO; -HYDR50TA15 PO; +MIN25T PO
[2020-12-12] MEDS ORDERED: ACETAMINOPHEN/CODEINE#3 (300/30mg) TAB PO ONE (19:00)
[2020-12-12] MEDS ORDERED: ONDANSETRON ODT 4 MG TAB PO ONE (19:00)
[2020-12-12 19:17] VITALS: BP 172/105
== END 2020-12-12 22:29 | disposition home or self-care (01) ==
LOC: ER 18:33
DX: M13.852 Other specified arthritis, left hip (principal); M13.851 Other specified arthritis, right hip; K59.00 Constipation, unspecified; N18.6 End stage renal disease; I70.208 Unspecified atherosclerosis of native arteries of extremities, other extremity; L98.8 Other specified disorders of the skin and subcutaneous tissue; Z99.2 Dependence on renal dialysis
CPT/HCPCS: 72192; 73502; 99284; Q0162

== ENCOUNTER 2020-12-25 07:05 | Emergency (ER) | payer OTHER ==
[~2020-12-25] VITALS: Ht 182.9 cm; Wt 90.7 kg
[2020-12-25 07:32] VITALS: BP 161/94
[2020-12-25] MEDS ORDERED: HYDROcodone-ACET 5/325MG TAB PO ONE (08:00)
== END 2020-12-25 08:33 | disposition home or self-care (01) ==
LOC: ER 07:05
DX: M16.0 Bilateral primary osteoarthritis of hip (principal); M25.451 Effusion, right hip; M25.452 Effusion, left hip; Z88.6 Allergy status to analgesic agent